=== PATIENT | male | born 1980 | race African-American/Black ===

== ENCOUNTER 2020-10-23 07:50 | Emergency (ER) | payer MEDICAID ==
[~2020-10-23] VITALS: Ht 193 cm; Wt 119.3 kg
[2020-10-23 08:07] VITALS: Ht 193 cm; Wt 119.3 kg
[2020-10-23] MEDS ORDERED: DICYCLOMINE HYD10 M1 PO (10:49)
[2020-10-23] MEDS ORDERED: OMEPRAZOLE40 M1 PO (10:49)
[2020-10-23 11:07] VITALS: BP 125/81
[2020-10-23 23:44] LABS: CALCIUM 9.5 mg/dL (8.5-10.1); CHLORIDE SERUM 105 mmol/L (98-107); GFR1 > 60 mL/min; GLUCOSE SERUM 71 mg/dL (74-106); POTASSIUM SERUM 4.5 mmol/L (3.5-5.1); SODIUM SERUM 141 mmol/L (136-145)
[2020-10-23 23:48] LABS: ALBUMIN 3.9 g/dL (3.4-5.0); ALKALINE PHOSPHATASE 74 U/L (46-116); ALT/SGPT 27 U/L (16-63); AST/SGOT 22 U/L (15-37); BILIRUBIN TOTAL 0.7 mg/dL (0.20-1.00); LIPASE 61 IU/L (73-393); TOTAL PROTEIN, SERUM 7.6 g/dL (6.4-8.2)
[2020-10-24 13:32] LABS: PLATELET COUNT 289 x10^3mcL (130-400); RED CELL DISTRIBUTION WIDTH 14.5 % (11.5-14.5)
[2020-10-24 13:33] LABS: BASOPHIL % 0.9 % (0-2)
== END 2020-10-23 11:07 | disposition home or self-care (01) ==
LOC: ED 07:50
PROVIDERS: Emergency Medicine
DX: R10.9 Unspecified abdominal pain (principal); Z91.040 Latex allergy status
CPT/HCPCS: J2405; J3010